=== PATIENT | female | born 1940 | race Caucasian/White ===

== ENCOUNTER 2025-04-13 08:42 | Emergency (ER) | payer MEDICARE, SELFPAY ==
--- NOTE | ~2025-04-13 | XR_ITS ---
EXAMINATION: XR SACRUM AND COCCYX CLINICAL INFORMATION: pain, injury COMPARISON: None available. TECHNIQUE: 2 views of the sacrum and 2 views of the coccyx were obtained. FINDINGS: Exam somewhat limited due to technical factors. The coccyx is somewhat obscured on the lateral projection. There is diffuse osteopenia. No definite fracture or bone lesion. There has been prior fusion of L3-4 with transpedicular screws and posterior connecting rods. The hardware appears intact, well seated, without loosening. There are mild degenerative changes in the SI joints. There are surgical clips along the course of the aorta, and right greater than left common femoral arteries. XR/XR sacrum coccyx min 2V IMPRESSION: Somewhat limited views of the coccyx. No acute bony abnormalities. Electronically signed by: Bertrand Wheatley MD 04/13/2025 10:05 AM EDT
--- NOTE | ~2025-04-13 | CT_ITS ---
EXAMINATION: CT THORACIC SPINE WITHOUT CONTRAST CLINICAL INFORMATION: Back pain after fall. COMPARISON: Correlation made with CTA of the chest 10/03/2019. MRI thoracic spine 09/04/2019. TECHNIQUE: Spiral CT imaging of the thoracic spine performed in axial plane without contrast. Multiplanar reformatted images were constructed from the axial data set. This CT examination was performed using dose optimization techniques as appropriate, variously including the following: *Automated exposure control *Adjustment of mA and/or kV according to patient size (this includes techniques or standardized protocols for targeted exams where dose is matched to indication/reason for exam; i.e. extremities or head) *Use of iterative reconstruction technique FINDINGS: Acute appearing compression fracture of the superior endplate of T12 approximately 20% loss of height. No significant retropulsion of bone. No involvement of the posterior elements. No additional fractures identified. There is osteopenia. There is mild right convex scoliosis, apex at C5. There is a normal kyphosis. There is no subluxation. No suspicious bone lesions. Normal facet alignment. Diffuse mild to moderate disc degeneration present. No definite central canal stenosis present in the thoracic region along for modality limitations. Mild paraspinal soft tissue swelling surrounding T12. Paraspinal soft tissues are otherwise normal. There is a tiny layering left pleural effusion. There is probable cardiac enlargement. There is calcification of the mitral annulus. No pericardial effusion. Imaged lungs clear aside from mild dependent atelectasis. CT/CT thoracic spine wo IV con IMPRESSION: 1. Approximately 20% acute appearing compression deformity superior endplate of T12. No extension into the posterior elements. No retropulsion of bone. 2. No additional fractures identified. 3. Osteopenia and degenerative changes. 4. Tiny layering left effusion. Electronically signed by: Bertrand Wheatley MD 04/13/2025 12:52 PM EDT
--- NOTE | ~2025-04-13 | CT_ITS ---
EXAMINATION: CT HEAD WITHOUT CONTRAST CLINICAL INFORMATION: head strike, pain, on AC COMPARISON: September 04, 2019. TECHNIQUE: Contiguous axial imaging was performed from the skull base to vertex without intravenous administration of contrast. This CT examination was performed using dose optimization techniques as appropriate, variously including the following: *Automated exposure control *Adjustment of mA and/or kV according to patient size (this includes techniques or standardized protocols for targeted exams where dose is matched to indication/reason for exam; i.e. extremities or head) *Use of iterative reconstruction technique DLP: 681 mGy-cm FINDINGS: The bony calvarium is intact. The skull base is intact. No acute intracranial hemorrhage, mass effect, midline shift, hydrocephalus or herniation. Prominence of the extra-axial CSF spaces cerebral sulci involving the bifrontal biparietal regions. Bilateral multifocal patchy and confluent deep periventricular white matter hypodensities involving centrum semiovale and hopson radiata. Posterior cranial fossa contents demonstrated no acute intracranial hemorrhage or mass effect. Craniocervical junction demonstrates normal position of the cerebellar tonsils. Sellar/suprasellar region demonstrated no gross masses. No air-fluid levels in the paranasal sinuses. Tympanic cavities and mastoid cells are aerated. CT/CT head/brain wo IV con IMPRESSION: No acute intracranial hemorrhage. No acute fracture, bony calvarium. Small vessel occlusive disease. Bifrontal biparietal atrophy. Electronically signed by: Yemi Quezada MD 04/13/2025 01:06 PM EDT
--- NOTE | ~2025-04-13 | CT_ITS ---
EXAMINATION: CT LUMBAR SPINE WITHOUT CONTRAST CLINICAL INFORMATION: Fall, back pain. COMPARISON: None available. TECHNIQUE: Spiral CT imaging of the lumbar spine performed in axial plane without contrast. Multiplanar reformatted images were constructed from the axial data set. This CT examination was performed using dose optimization techniques as appropriate, variously including the following: *Automated exposure control *Adjustment of mA and/or kV according to patient size (this includes techniques or standardized protocols for targeted exams where dose is matched to indication/reason for exam; i.e. extremities or head) *Use of iterative reconstruction technique FINDINGS: Redemonstration of 20% acute compression fracture of T12 superior endplate. No retropulsion of bone. No extension into the posterior elements. No additional fractures identified. The sacrum is intact. Diffuse osteopenia is present. Normal lordosis. Mild right convex scoliosis. Posterior fusion of L3-4 with transpedicular screws and posterior connecting rods. Hardware appears well seated, without periprosthetic loosening or fracture. There is a 3 mm degenerative retrolisthesis of L1 on L2, a 4 mm anterolisthesis of L2 on L3, 3 mm anterolisthesis of L3 on L4. There is been a disc prosthesis placed at L3-4. Moderate disc degeneration otherwise present at T12-L3. Multilevel facet degeneration present most notable spanning L3-S1. Degenerative changes in both SI joints. Mild paravertebral edema is present surrounding T12. No additional paravertebral or paraspinous soft tissue abnormality. Sigmoid diverticulosis is noted. Partially imaged Aortobiiliac bypass graft. CT/CT lumbar spine wo IV con IMPRESSION: 1. Lumbar spine demonstrating a 20% acute compression fracture of the superior endplate of T12. No retropulsion of bone and no extension into the posterior elements. 2. No additional fractures. 3. Diffuse lumbar spondylosis with posterior fusion of L3-4. No complication evident. Electronically signed by: Bertrand Wheatley MD 04/13/2025 01:01 PM EDT
--- NOTE | ~2025-04-13 | CT_ITS ---
EXAMINATION: CT CERVICAL SPINE WITHOUT CONTRAST CLINICAL INFORMATION: Injury. Pain. COMPARISON: Correlated to MRI dated September 04, 2019. TECHNIQUE: Contiguous axial images through the cervical spine using 3 mm collimation with bone and soft tissue algorithm. Sagittal and coronal reformatted images and bone algorithm. DLP: [address] examination was performed using dose optimization techniques as appropriate, variously including the following: *Automated exposure control *Adjustment of mA and/or kV according to patient size (this includes techniques or standardized protocols for targeted exams where dose is matched to indication/reason for exam; i.e. extremities or head) *Use of iterative reconstruction technique FINDINGS: Craniocervical junction is intact with normal alignment between the occipital condyles and lateral masses of C1. Degenerative changes periodontal C1 region. Marginal osteophyte formation and endplate sclerosis subchondral cyst formation and decreased intervertebral disc height at C4-5 and to a lesser extent C5-C6 C6-7 and C3-4 levels. Superior endplate compression deformity representing 20% volume loss at C7 likely old. Grade 1 anterolisthesis C2-3, C3-4 levels. Multilevel facet joint hypertrophy. Incomplete ankylosis of the facet joints at C2-3 on the left side. C1 is intact. C2 is intact. C3 is intact. Right facet joint hypertrophy. C4 is intact. Right facet joint hypertrophy. C5 is intact. Facet joint hypertrophy, bilaterally. C3 6 is intact. Facet joint hypertrophy. C3 7 is intact. Osteopenia versus osteoporosis. No prevertebral compartment hematoma. Central spinal canal stenosis on a multifocal basis C4-5. 1.8 cm low-density nodule, left thyroid lobe. Calcified plaques in the carotid arteries. CT/CT cervical spine wo IV con IMPRESSION: Multilevel cervical spondylosis without acute fracture or trauma-related listhesis. Fleischner guidelines were followed. Electronically signed by: Yemi Quezada MD 04/13/2025 01:13 PM EDT
[2025-04-13 08:54] VITALS: BP 130/80; PULSE 80; O2SAT 98
--- NOTE | 2025-04-13 08:55 | ED_ITS ---
HPI - General Adult General Chief complaint: Fall Stated complaint: FALL ,ON ELIQUIS PER EMS Time Seen by Provider: 04/13/25 08:54 Source: patient, family (patient's daughter) and EMS Mode of arrival: EMS Limitations: no limitations History of Present Illness ED Provider: Abena Aquino PA-C HPI narrative: Patient is an 84 year old assigned female at with a history of atrial fib on AC, anxiety, depression, OA, bilateral iliac artery aneurysm, HTN, IBS, PAD, OCD, and raynaud's disease presenting to the emergency department today with buttock pain and back pain after a fall. Patient states that she was in her laundry room at 1230 this morning when she fell and hit her bottom and her head. Patient states that she is having some back pain as well. Patient denies any loss of consciousness, states that she was able to get up and ambulate on her own and waited until this morning to call an ambulance after telling her daughter she fell. Patient denies any dizziness, lightheadedness, abdominal pain, nausea, vomiting, fever, chills, blurry vision, double vision, loss of vision, chest pain, difficulty breathing, shortness of breath, night sweats, pain with urination, increased urinary frequency, increased urinary urgency, blood in her urine or stool, syncope or a near syncopal episode, bowel incontinence, bladder incontinence, or any other complaints at this time. Onset (ago): hour(s) Relieving factors: none Exacerbating factors: none Associated symptoms: denies other symptoms Treatments prior to arrival: none Related Data Allergies Allergy/AdvReac Type Severity Reaction Status Date / Time amoxicillin [AMOXICILLIN] AdvReac Unknown DIARRHEA Unverified 04/13/25 09:01 Review of Systems 2 Constitutional: Constitutional: Reports no additional constitutional complaints, Denies chills, Denies fever(s) and Denies night sweats Eyes: Eyes: Reports no additional eye complaints, Denies blurry vision, Denies change in vision, Denies diplopia, Denies eye discharge, Denies loss of vision and Denies eye pain ENT: Denies dizziness Cardiovascular: Cardiovascular: Reports no additional cardiovascular complaints, Denies chest pain, Denies lightheadedness, Denies Loss of Consciousness and Denies dyspnea Respiratory: Respiratory: Reports no additional respiratory complaints and Denies dyspnea Gastrointestinal: Gastrointestinal: Reports no additional gastrointestinal complaints, Denies abdominal pain, Denies melena, Denies hematochezia, Denies change in bowel habits and Denies change in stool character Genitourinary: Genitourinary: Denies hematuria, Denies urinary frequency, Denies dysuria, Denies urinary incontinence, Denies urinary hesitancy and Denies urinary urgency Musculoskeletal: Musculoskeletal: Reports no additional musculoskeletal complaints, Reports back pain, Denies numbness and Denies tingling Comments: buttock pain Neurologic: Denies dizziness, Denies loss of vision, Denies numbness and Denies tingling Psychiatric: Psychiatric: Reports no additional psychiatric complaints Endocrine: Endocrine: Reports no additional endocrine complaints Hematologic/Lymphatic: Hematologic/Lymphatic: Reports no additional hematologic/lymphatic complaints Allergic/Immunologic: Allergic/Immunologic: Reports no additional allergic/immunologic complaints PMFSH Past Medical History Attestation statement: The following information was validated with the patient. (patient's daughter validated all information) Source: old records reviewed, obtained from family (patient's daughter provided additional history and confirmed the history provided by the patient.) and nursing notes reviewed Social History Social History Unable to assess alcohol history related to: Unknown Smoked in Last 30 Days: No Use of substances other than those prescribed or required for medical reasons: Unknown Advance Directives: No Advance Directives Information Provided: Yes Physical Exam ED Vital Signs: Vital Signs - 24 hr 04/13/25 10:48 04/13/25 12:00 04/13/25 14:00 Temperature 98.2 F 98.8 F 98.8 F Pulse Rate 77 91 85 Respiratory Rate 16 16 16 Blood Pressure 134/68 148/63 H 146/83 H Pulse Oximetry 95 94 93 Oxygen Delivery Method Room Air Room Air Room Air BMI result Body Mass Index 23.6 Const General: cooperative, no acute distress, alert and awake Nutritional Appearance: well nourished Orientation/consciousness: patient oriented x3 HENMT Head: Yes normal to inspection and Yes atraumatic Ears: hearing grossly normal bilaterally and external ears normal General nose exam: Normal external nose present, no nasal discharge noted and no epistaxis Face and sinus: Yes normal facial exam, No abrasion and No laceration Mouth: Normal oral and palatal mucosa present, no drooling and no muffled voice Eyes General: appearance normal, both eyes and all related structures Periorbital: periorbital findings normal Eyelids: Yes eyelids normal Conjunctivae: conjunctivae normal Pupils: Equal, round and reactive pupils present EOM: EOMs intact bilaterally Neck Neck: Yes normal visual inspection, Yes full ROM and Yes no lymphadenopathy Resp Effort & Inspection: normal respiratory effort and able to speak in complete sentences Neuro General: patient oriented x3, moves all extremities and CN's II-XI intact bilaterally Cranial nerves: Yes Equal, round and reactive pupils present Cognition (Neuro): normal cognition Extrem General: Yes normal to inspection, Yes full ROM and Yes capillary refill normal Psych Appearance: grossly normal Mental Status: mental status grossly normal Affect: normal affect Attitude: cooperative Thought process: Normal thought process present Thought content: Normal thought content present Insight: Good insight present (Psych) Medications Administered Discontinued Medications Generic Name Dose Route Start Last Admin Trade Name Freq PRN Reason Stop Dose Admin Oxycodone HCl 10 mg 04/13/25 11:59 04/13/25 12:06 Oxycodone Hcl Immed Release 5 Mg Tablet PO 04/13/25 12:00 10 mg ONCE ONE Administration Medical Decision Making Medical Decision Making [facility] Narrative: Patient is an 84 year old assigned female at with a history of atrial fib on AC, anxiety, depression, OA, bilateral iliac artery aneurysm, HTN, IBS, PAD, OCD, and raynaud's disease presenting to the emergency department today with buttock pain and back pain after a fall. Patient's physical exam was unremarkable. Patient's blood work was unremarkable. Patient's urine showed no acute process. Patient's EKG was unremarkable. Patient's coccyx x-ray showed no acute process. Patient's head CT and c-spine CT showed no acute process. Patient's lumbar and thoracic CT scans showed a T12 compression fracture. I explained my physical exam findings as well as all test results to the patient and the patient's daughter. I answered all questions asked by the patient and the patient's daughter. I stressed the importance of the patient taking her medication as directed (either prescribed or as the over the counter packaging recommends). I stressed the importance of the patient following up with her primary care provider and her neurosurgeon. I stressed the importance of the patient returning to the emergency department immediately if her symptoms were to worsen or if she were to develop any dizziness, shortness of breath, difficulty breathing, chest pain, blurry vision, loss of vision, nausea, vomiting, abdominal pain, fever, chills, back pain, or any other complaints. Patient and the patient's daughter verbalized agreement and understanding with this treatment plan and discharge. Differential Diagnosis Differential Diagnoses: The differential diagnosis associated with the presentation includes Fall Compression fracture Pain Admission/Observation Consideration of admission/observation: Escalation of care including admission/observation considered Patient would have been admitted to the hospital had her work up had any findings where hospital admission was appropriate and her clinical presentation warranted hospital admission. Lab Data [facility] Lab Attestation statement: I reviewed the patient's lab results. My interpretation of these results are in the [facility] Rationale portion of this note. 04/13/25 10:13 04/13/25 10:13 Labs: Lab Results 04/13/25 04/13/25 04/13/25 Range/Units 10:08 10:13 14:24 WBC 8.7 (4.8-10.8) X10*3/uL RBC 4.40 (4.20-5.50) X10*6/uL Hgb 14.1 (12.0-16.0) g/dl Hct 42.8 (37.0-47.0) % MCV 97.3 (80.0-98.0) fL MCH 32.0 (27.0-33.0) pg MCHC 32.9 (31.0-35.0) g/dl RDW 13.1 (11.0-16.0) % Plt Count 119 L (160-400) X10*3/uL MPV 11.7 (9.4-12.3) fL Immature Gran % (Auto) 0.3 (0.0-0.4) % Neut % (Auto) 85.3 H (45-73) % Lymph % (Auto) 8.8 L (20-40) % Leake % (Auto) 5.3 (2-11) % Eos % (Auto) 0.1 (0-4) % Baso % (Auto) 0.2 (0-2) % Lymph # (Auto) 0.8 L (1.2-4.9) X10*3/uL Leake # (Auto) 0.5 (0.1-1.2) X10*3/uL Eos # (Auto) 0.0 (0.0-0.4) X10*3/uL Baso # (Auto) 0.0 (0.0-0.2) X10*3/uL Abs Immat Gran (auto) 0.03 (0.00-0.03) X10*3/uL Absolute Neuts (auto) 7.4 (2.0-8.3) x10*3/uL Absolute Nucleated RBC 0.000 (0.0-0.012) X10*3/uL Nucleated RBC % (auto) 0.0 (0.0-0.2) /100WBC PT 16.7 H (10.9-12.4) SEC INR 1.5 H (0.9-1.1) Sodium 140 (135-145) mmol/L Potassium 4.1 (3.3-5.1) mmol/L Chloride 105 (96-108) mmol/L Carbon Dioxide 29 (22-29) mmol/L Anion Gap 10 L (12-20) BUN 22 H (9-16) mg/dL Creatinine 0.78 (0.5-1.4) mg/dL Estim Creat Clear Calc 41.3 Estimated GFR > 60 Random Glucose 113 (60-115) mg/dL Calcium 9.2 (8.4-10.2) mg/dL Magnesium 2.1 (1.6-2.6) mg/dL Total Bilirubin 0.9 (0.0-1.0) mg/dL AST 25 (5-31) U/L ALT 20 (0-31) U/L Alkaline Phosphatase 58 (39-117) U/L Troponin I High Sens < 2.7 (<3.5-17.0) ng/L Total Protein 5.9 L (6.5-8.0) g/dL Albumin 3.8 (3.5-5.0) g/dL Urine Color Yellow Urine Appearance Clear Urine pH 5.5 (5.0-9.0) Ur Specific Kingsley 1.020 (1.005-1.025) Urine Protein Trace (Neg-Trace) mg/dL Urine Glucose (UA) Negative (Negative) mg/dL Urine Ketones 40 (Negative) mg/dL Urine Blood Negative (Negative) Urine Nitrite Negative (Negative) Ur Leukocyte Esterase Negative (Negative) Influenza Type A (PCR) NEGATIVE (Negative) Influenza Type B (PCR) NEGATIVE (Negative) RSV RNA Qual (PCR) NEGATIVE (Negative) SARS-CoV-2 RNA (RT-PCR) NEGATIVE (Negative) Independent Interpretation I performed an independent interpretation of an: EKG, Plain X-Ray (coccyx) and CT Scan (Head, c-spine, thoracic spine, lumbar spine) Interpretation: My interpretation is in agreement with the radiologist's impression of these imaging studies. L EXAMINATION: XR SACRUM AND COCCYX CLINICAL INFORMATION: pain, injury COMPARISON: None available. TECHNIQUE: 2 views of the sacrum and 2 views of the coccyx were obtained. FINDINGS: Exam somewhat limited due to technical factors. The coccyx is somewhat obscured on the lateral projection. There is diffuse osteopenia. No definite fracture or bone lesion. There has been prior fusion of L3-4 with transpedicular screws and posterior connecting rods. The hardware appears intact, well seated, without loosening. There are mild degenerative changes in the SI joints. There are surgical clips along the course of the aorta, and right greater than left common femoral arteries. XR/XR sacrum coccyx min 2V IMPRESSION: Somewhat limited views of the coccyx. No acute bony abnormalities. Electronically signed by: Bertrand Wheatley MD 04/13/2025 10:05 AM EDT Dictated By: Bertrand Wheatley MD Signed By: Electronically signed by Bertrand Wheatley MD 04/13/25 1005 Report Number: [id number]: Total DLP = 0.00 mGy-cm EXAMINATION: CT CERVICAL SPINE WITHOUT CONTRAST CLINICAL INFORMATION: Injury. Pain. COMPARISON: Correlated to MRI dated September 04, 2019. TECHNIQUE: Contiguous axial images through the cervical spine using 3 mm collimation with bone and soft tissue algorithm. Sagittal and coronal reformatted images and bone algorithm. DLP: [address] examination was performed using dose optimization techniques as appropriate, variously including the following: *Automated exposure control *Adjustment of mA and/or kV according to patient size (this includes techniques or standardized protocols for targeted exams where dose is matched to indication/reason for exam; i.e. extremities or head) *Use of iterative reconstruction technique FINDINGS: Craniocervical junction is intact with normal alignment between the occipital condyles and lateral masses of C1. Degenerative changes periodontal C1 region. Marginal osteophyte formation and endplate sclerosis subchondral cyst formation and decreased intervertebral disc height at C4-5 and to a lesser extent C5-C6 C6-7 and C3-4 levels. Superior endplate compression deformity representing 20% volume loss at C7 likely old. Grade 1 anterolisthesis C2-3, C3-4 levels. Multilevel facet joint hypertrophy. Incomplete ankylosis of the facet joints at C2-3 on the left side. C1 is intact. C2 is intact. C3 is intact. Right facet joint hypertrophy. C4 is intact. Right facet joint hypertrophy. C5 is intact. Facet joint hypertrophy, bilaterally. C3 6 is intact. Facet joint hypertrophy. C3 7 is intact. Osteopenia versus osteoporosis. No prevertebral compartment hematoma. Central spinal canal stenosis on a multifocal basis C4-5. 1.8 cm low-density nodule, left thyroid lobe. Calcified plaques in the carotid arteries. CT/CT cervical spine wo IV con IMPRESSION: Multilevel cervical spondylosis without acute fracture or trauma-related listhesis. Fleischner guidelines were followed. Electronically signed by: Yemi Quezada MD 04/13/2025 01:13 PM EDT Dictated By: Yemi Acosta MD Signed By: Electronically signed by Yemi Brink MD 04/13/25 1313 Report Number: [id number]: Total DLP = 0.00 mGy-cm EXAMINATION: CT HEAD WITHOUT CONTRAST CLINICAL INFORMATION: head strike, pain, on AC COMPARISON: September 04, 2019. TECHNIQUE: Contiguous axial imaging was performed from the skull base to vertex without intravenous administration of contrast. This CT examination was performed using dose optimization techniques as appropriate, variously including the following: *Automated exposure control *Adjustment of mA and/or kV according to patient size (this includes techniques or standardized protocols for targeted exams where dose is matched to indication/reason for exam; i.e. extremities or head) *Use of iterative reconstruction technique DLP: 681 mGy-cm FINDINGS: The bony calvarium is intact. The skull base is intact. No acute intracranial hemorrhage, mass effect, midline shift, hydrocephalus or herniation. Prominence of the extra-axial CSF spaces cerebral sulci involving the bifrontal biparietal regions. Bilateral multifocal patchy and confluent deep periventricular white matter hypodensities involving centrum semiovale and hopson radiata. Posterior cranial fossa contents demonstrated no acute intracranial hemorrhage or mass effect. Craniocervical junction demonstrates normal position of the cerebellar tonsils. Sellar/suprasellar region demonstrated no gross masses. No air-fluid levels in the paranasal sinuses. Tympanic cavities and mastoid cells are aerated. CT/CT head/brain wo IV con IMPRESSION: No acute intracranial hemorrhage. No acute fracture, bony calvarium. Small vessel occlusive disease. Bifrontal biparietal atrophy. Electronically signed by: Yemi Quezada MD 04/13/2025 01:06 PM EDT RP Dictated By: Yemi Acosta MD Signed By: Electronically signed by Yemi Brink MD 04/13/25 1306 Report Number: [id number]: Total DLP = 0.00 mGy-cm EXAMINATION: CT THORACIC SPINE WITHOUT CONTRAST CLINICAL INFORMATION: Back pain after fall. COMPARISON: Correlation made with CTA of the chest 10/03/2019. MRI thoracic spine 09/04/2019. TECHNIQUE: Spiral CT imaging of the thoracic spine performed in axial plane without contrast. Multiplanar reformatted images were constructed from the axial data set. This CT examination was performed using dose optimization techniques as appropriate, variously including the following: *Automated exposure control *Adjustment of mA and/or kV according to patient size (this includes techniques or standardized protocols for targeted exams where dose is matched to indication/reason for exam; i.e. extremities or head) *Use of iterative reconstruction technique FINDINGS: Acute appearing compression fracture of the superior endplate of T12 approximately 20% loss of height. No significant retropulsion of bone. No involvement of the posterior elements. No additional fractures identified. There is osteopenia. There is mild right convex scoliosis, apex at C5. There is a normal kyphosis. There is no subluxation. No suspicious bone lesions. Normal facet alignment. Diffuse mild to moderate disc degeneration present. No definite central canal stenosis present in the thoracic region along for modality limitations. Mild paraspinal soft tissue swelling surrounding T12. Paraspinal soft tissues are otherwise normal. There is a tiny layering left pleural effusion. There is probable cardiac enlargement. There is calcification of the mitral annulus. No pericardial effusion. Imaged lungs clear aside from mild dependent atelectasis. CT/CT thoracic spine wo IV con IMPRESSION: 1. Approximately 20% acute appearing compression deformity superior endplate of T12. No extension into the posterior elements. No retropulsion of bone. 2. No additional fractures identified. 3. Osteopenia and degenerative changes. 4. Tiny layering left effusion. Electronically signed by: Bertrand Wheately MD 04/13/2025 12:52 PM EDT Dictated By: Bertrand Wheatley MD Signed By: Electronically signed by Bertrand Wheatley MD 04/13/25 1252 Report Number: [id number]: Total DLP = 0.00 mGy-cm EXAMINATION: CT LUMBAR SPINE WITHOUT CONTRAST CLINICAL INFORMATION: Fall, back pain. COMPARISON: None available. TECHNIQUE: Spiral CT imaging of the lumbar spine performed in axial plane without contrast. Multiplanar reformatted images were constructed from the axial data set. This CT examination was performed using dose optimization techniques as appropriate, variously including the following: *Automated exposure control *Adjustment of mA and/or kV according to patient size (this includes techniques or standardized protocols for targeted exams where dose is matched to indication/reason for exam; i.e. extremities or head) *Use of iterative reconstruction technique FINDINGS: Redemonstration of 20% acute compression fracture of T12 superior endplate. No retropulsion of bone. No extension into the posterior elements. No additional fractures identified. The sacrum is intact. Diffuse osteopenia is present. Normal lordosis. Mild right convex scoliosis. Posterior fusion of L3-4 with transpedicular screws and posterior connecting rods. Hardware appears well seated, without periprosthetic loosening or fracture. There is a 3 mm degenerative retrolisthesis of L1 on L2, a 4 mm anterolisthesis of L2 on L3, 3 mm anterolisthesis of L3 on L4. There is been a disc prosthesis placed at L3-4. Moderate disc degeneration otherwise present at T12-L3. Multilevel facet degeneration present most notable spanning L3-S1. Degenerative changes in both SI joints. Mild paravertebral edema is present surrounding T12. No additional paravertebral or paraspinous soft tissue abnormality. Sigmoid diverticulosis is noted. Partially imaged Aortobiiliac bypass graft. CT/CT lumbar spine wo IV con IMPRESSION: 1. Lumbar spine demonstrating a 20% acute compression fracture of the superior endplate of T12. No retropulsion of bone and no extension into the posterior elements. 2. No additional fractures. 3. Diffuse lumbar spondylosis with posterior fusion of L3-4. No complication evident. Electronically signed by: Bertrand Wheatley MD 04/13/2025 01:01 PM EDT Dictated By: Bertrand Wheatley MD Signed By: Electronically signed by Bertrand Wheatley MD 04/13/25 1301 I independently interpreted this EKG and am in agreement with the below findings: Vent. Rate: 89 BPM Atrial Rate: * BPM P-R Int: * ms QRS Dur: 58 ms QT Int: 354 ms P-R-T Axes: * -15 59 degrees QTcB Int: 430 ms Atrial fibrillation Nonspecific ST abnormality When compared with ECG of 03-Oct-2019 19:08, Atrial fibrillation has replaced Atrial flutter Vent. rate has decreased by 53 bpm DD/ 1027 Radiology Impression Discussion of test interpretation with radiology: I have reviewed the radiologist's reading. Independent Historian Clinical information obtained from an independent historian. History obtained from or confirmed by: EMS (EMS provided additional history and confirmed the history provided by the patient. ) and Other (Patient's daughter provided additional history and confirmed the history provided by the patient.) Discharge Plan Discharge Clinical Impression: Compression fracture Patient Disposition: Home, Self-Care Instructions: Vertebral Compression Fracture (ED) Additional Instructions: Your work up today showed no evidence of an emergent reason for your fall or an emergent condition secondary to your fall. Your imaging today did show a compression fracture of the T12 vertebrae for which you should follow up with your neurosurgeon (spine surgeon). Follow up with your primary care provider. Return to the emergency department immediately if your symptoms worsen or if you develop any numbness, tingling, dizziness, shortness of breath, difficulty breathing, chest pain, blurry vision, loss of vision, nausea, vomiting, abdominal pain, fever, chills, back pain, or any other complaints. Please see the information below about our Patient Portal. If you are not yet enrolled in the [facility] Patient Portal, you will receive an enrollment email invitation following your visit to any [facility] setting. You may also self-enroll in the Patient Portal by visiting our website: [email or web address] The following information is required to access the Patient Portal: - Your [facility] Medical Record Number - Your personal home email address (must match what is in your electronic medical record, Registration staff can assist with this) - Name - Date of Capabilities of the Patient Portal: - Message some providers - View upcoming appointments - Access your health summary, medical history, and visit history - View current conditions and allergies - View procedure and lab results - View your medications, including guidelines, side effects, and precautions - Complete pre-appointment questionnaires requested by your provider - Ready summary reports of your office visits and procedures To access the Patient Portal Mobile Zac, follow these directions: - Search [employer] in the Zac Store or Google VR1 Store - Download the Zac - Search for [facility] - Enter your login/password Referrals: Gen Corona MD [Primary Care Provider] - Print Language: Hungarian
[2025-04-13 09:00] VITALS: BMI 23.6
--- NOTE | 2025-04-13 09:17 | ECG_ITS ---
Test Reason : FALL Blood Pressure : */* mmHG Vent. Rate : 89 BPM Atrial Rate : * BPM P-R Int : * ms QRS Dur : 58 ms QT Int : 354 ms P-R-T Axes : * -15 59 degrees QTcB Int : 430 ms Atrial fibrillation Nonspecific ST abnormality Abnormal ECG When compared with ECG of 03-Oct-2019 19:08, Atrial fibrillation has replaced Atrial flutter Vent. rate has decreased by 53 bpm Referred By: Abena Aquino Electronically Signed By: SIMI MILLER MD
--- OUTSIDE RECORDS SUMMARY | 2025-04-13 10:07 | XMS_ITS | Continuity of Care Document ---
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 [address], [place], [address], [place]. tel:[phone] Family History Family Member Type Diagnosis Age At Onset No Information Payers Payer name Insurance type Covered libertarian ID Authoriza tion(s) No Information Social History Type Description Quantity Date Captured Comments Sex Female Smoking Status No Information Chief Complaint And Reason For Visit No Information Reason For Referral Reason For Referral No Information History Of Present Illness Encounter Date Complaint History Of Prese nt Illness No Information Functional Status Date Functional Assessmen t No Information Instructions Date Instruction Additional Infor mation No Information Assessments Type Assessment Date No Information Patient Care Teams Name Effective Dates (start - stop) Status Members No Information
[2025-04-13 10:20] LABS: MANUAL DIFF FLAG NO
[2025-04-13 10:26] LABS: Basophils Percent Auto 0.2 % (0-2); Eosinophils Percent Auto 0.1 % (0-4); Hematocrit 42.8 % (37.0-47.0); Hemoglobin 14.1 g/dl (12.0-16.0); Imm Gran Abs Auto 0.03 X10*3/uL (0.00-0.03); Imm Gran Pct Auto 0.3 % (0.0-0.4); Lymphocytes Absolute Auto 0.8 X10*3/uL (1.2-4.9); Lymphocytes Percent Auto 8.8 % (20-40); Mean Corpuscular HGB Conc 32.9 g/dl (31.0-35.0); Mean Corpuscular Volume 97.3 fL (80.0-98.0); Mean Platelet Volume 11.7 fL (9.4-12.3); Monocytes Absolute Auto 0.5 X10*3/uL (0.1-1.2); Monocytes Percent Auto 5.3 % (2-11); Neutrophils Absolute Auto 7.4 x10*3/uL (2.0-8.3); Neutrophils Percent Auto 85.3 % (45-73); Platelet Count 119 X10*3/uL (160-400); Red Cell Distribution Width 13.1 % (11.0-16.0); White Blood Count 8.7 X10*3/uL (4.8-10.8)
[2025-04-13 10:27] LABS: INTERNATIONAL NORM RATIO 1.5 (0.9-1.1); Prothrombin Time 16.7 SEC (10.9-12.4)
[2025-04-13 10:37] LABS: Alanine Aminotransferase 20 U/L (0-31); Albumin Level 3.8 g/dL (3.5-5.0); Alkaline Phosphatase 58 U/L (39-117); Anion Gap 10 (12-20); Aspartate Amino Transferase 25 U/L (5-31); Bilirubin Total 0.9 mg/dL (0.0-1.0); Blood Urea Nitrogen 22 mg/dL (9-16); Calcium 9.2 mg/dL (8.4-10.2); Carbon Dioxide 29 mmol/L (22-29); Chloride 105 mmol/L (96-108); Creatinine Clr Calc Pharmacy 41.3; Estimated Glomerular Filt Rate > 60; Glucose Random 113 mg/dL (60-115); Magnesium 2.1 mg/dL (1.6-2.6); Potassium 4.1 mmol/L (3.3-5.1); Sodium 140 mmol/L (135-145); Total Protein 5.9 g/dL (6.5-8.0)
[2025-04-13 10:48] VITALS: BP 134/68; PULSE 77; RESP 16; TEMP 36.8; O2SAT 95
[2025-04-13 10:50] LABS: Troponin-I High Sensitivity < 2.7 ng/L (<3.5-17.0)
[2025-04-13 11:15] LABS: Influenza A PCR NEGATIVE (Negative); Influenza B PCR NEGATIVE (Negative); Resp Syncy Virus RNA Qual PCR NEGATIVE (Negative); SARS COV2 PCR INHOUSE NEGATIVE (Negative)
[2025-04-13 12:00] VITALS: BP 148/63; PULSE 91; RESP 16; TEMP 37.1; O2SAT 94
[2025-04-13] MEDS: oxyCODONE HCl Immed Release 5 MG TABLET 10 MG PO (12:06)
[2025-04-13 14:00] VITALS: BP 146/83; PULSE 85; RESP 16; TEMP 37.1; O2SAT 93
[2025-04-13 14:31] LABS: Appearance Urine Clear; Color Urine Yellow; Glucose Urine UA Negative (Negative); Leukocyte Esterase Urine Negative (Negative); Nitrite Urine Negative (Negative); PH 5.5 (5.0-9.0); Urine Blood Negative (Negative); Urine Ketones 40 mg/dL (Negative); Urine Protein Trace mg/dL (Neg-Trace)
--- NOTE | 2025-04-13 14:31 | PC.NURSE ---
Pt able to ambulate to restroom with standby assist
[2025-04-13 15:09] VITALS: BP 135/75; PULSE 95; RESP 16; TEMP 36.8; O2SAT 93
[2025-04-13 15:11] VITALS: BP 135/75; PULSE 95; RESP 16; TEMP 36.8; O2SAT 93
== END 2025-04-13 15:12 | disposition home or self-care (01) ==
PROVIDERS: Physician Assistant Medical; Emergency Provider Emergency Medicine; PCP Family Medicine
DX: M48.56XA Collapsed vertebra, not elsewhere classified, lumbar region, initial encounter for fracture (principal); M48.54XA Collapsed vertebra, not elsewhere classified, thoracic region, initial encounter for fracture; M47.812 Spondylosis without myelopathy or radiculopathy, cervical region; R51.9 Headache, unspecified; Z03.818 Encounter for observation for suspected exposure to other biological agents ruled out; R29.6 Repeated falls; Z91.81 History of falling; I48.91 Unspecified atrial fibrillation; Z79.01 Long term (current) use of anticoagulants
CPT/HCPCS: 0241U; 70450; 72125; 72128; 72131; 72220; 80053; 81003; 83735; 84484; 85025; 85610; 93005; 99284; 99285

== ENCOUNTER → 2025-04-13 09:17 | Outpatient (BNV) | payer MEDICARE, SELFPAY | PROVIDERS: PCP Family Medicine; Visit Provider Radiology Diagnostic Radiology | DX: M85.80 Other specified disorders of bone density and structure, unspecified site (principal); S22.000A Wedge compression fracture of unspecified thoracic vertebra, initial encounter for closed fracture; M47.892 Other spondylosis, cervical region; G44.309 Post-traumatic headache, unspecified, not intractable; M54.18 Radiculopathy, sacral and sacrococcygeal region | CPT/HCPCS: 72128; 72131; 72220 ==

== ENCOUNTER → 2025-04-13 09:17 | Outpatient (BNV) | payer MEDICARE, SELFPAY | PROVIDERS: Emergency Provider Emergency Medicine; PCP Family Medicine; Visit Provider Internal Medicine Cardiovascular Disease | DX: I48.91 Unspecified atrial fibrillation (principal) | CPT/HCPCS: 93010 ==